=== PATIENT | female | born 1955 | race Two or more races ===

== ENCOUNTER 2022-04-12 06:04 | Day surgery (SDC) | payer OTHER ==
[~2022-04-12] VITALS: Ht 152.4 cm; Wt 69.9 kg
[~2022-04-12 06:04] MED LIST: ATORVASTATIN CA80 MG PO; SYNTHROID75 MCG PO
[2022-04-12] MEDS ORDERED: CEPHALEXIN500 MG PO (12:19)
[2022-04-12] MEDS ORDERED: CILOXAN5 ML OTIC (12:19)
== END 2022-04-12 15:25 | disposition home or self-care (01) ==
LOC: CIR.AMB 06:04
PROVIDERS: ATTEND Otolaryngology Otology & Neurotology
DX: H80.91 Unspecified otosclerosis, right ear (principal); H90.A11 Conductive hearing loss, unilateral, right ear with restricted hearing on the contralateral side; Z20.822 Contact with and (suspected) exposure to COVID-19; E11.9 Type 2 diabetes mellitus without complications; E03.9 Hypothyroidism, unspecified